=== PATIENT | female | born 1995 | race American Indian/Alaskan Native ===

== ENCOUNTER 2021-04-07 06:59 | Emergency (ER) | payer MEDICAID ==
--- NOTE | 2021-04-07 07:31 | Emergency Department Report ---
ED HPI - General Chief complaint: Vaginal Bleeding Stated complaint: VAGINAL BLEEDING Time Seen by Provider: 04/07/21 07:12 Source: patient Mode of arrival: Ambulatory Limitations: No Limitations - History of Present Illness Initial comments: The patient was evaluated in the emergency department for symptoms described in the history of present illness. He/she was evaluated in the context of the global COVID-19 pandemic, which necessitated consideration that the patient might be at risk for infection with the virus that causes COVID-19. In stitutional protocols and algorithms that pertain to the evaluation of patients at risk for COVID-19 are in a state of rapid change based on information released by regulatory bodies including the CDC and federal and state organizations. These policies and algorithms were followed during the patient's care in the emergency department. Please note that these policies, procedures and recommendations changed on a rapid basis. 25-year-old -[place] female presents to the emergency room stating she is approximately 6 weeks was vaginal spotting that started 3 days ago. She states that she has had a light intermittent cramping. Her last menstrual period was February 22. She is 1 para 0. She has her first appointment with [facility] gynecology in [place] on Saturday. She denies any past medical history she has not started her vitamins and has no known drug allergies. MD Complaint: vaginal bleeding Onset/Timin -: days(s) Severity scale (0 -10): 0 Quality: cramping Consistency: intermittent Improves with: none Worsens with: none Associated symptoms: vaginal bleeding Vaginal bleeding: light :: Yes Number of weeks : 6 OB History - Current : no complications Last menstrual period: 02/22/21 Pre-laura care: none - Related Data : 1 Home Medications Medication Instructions Recorded Confirmed Last Taken DOXYCYCLINE Hyclate [Vibramycin] 100 mg PO BID 03/02/13 03/02/13 Unknown metroNIDAZOLE [Flagyl] 500 mg PO 03/02/13 03/02/13 Unknown Previous Rx's Medication Instructions Recorded Last Taken Type Vit-Fe Fumar-FA [ 1 tab PO QDAY #90 tablet 04/07/21 Unknown Rx Vitamin] Allergies Allergy/AdvReac Type Severity Reaction Status Date / Time No Known Allergies Allergy Unverified 03/02/13 17:04 ED Review of Systems ROS: Stated complaint: VAGINAL BLEEDING Other details as noted in HPI Comment: All other systems reviewed and negative ED Past Medical Hx - Past Medical History Previous Medical History?: No - Surgical History Past Surgical History?: No - Social History Smoking Status: Never Smoker Substance Use Type: None - Medications Home Medications: Home Medications Medication Instructions Recorded Confirmed Last Taken Type DOXYCYCLINE Hyclate [Vibramycin] 100 mg PO BID 03/02/13 03/02/13 Unknown History metroNIDAZOLE [Flagyl] 500 mg PO 03/02/13 03/02/13 Unknown History Vit-Fe Fumar-FA [ 1 tab PO QDAY #90 tablet 04/07/21 Unknown Rx Vitamin] ED Physical Exam - General Limitations: No Limitations General appearance: alert, in no apparent distress - Head Head exam: Present: atraumatic, normocephalic - Eye Eye exam: Present: normal appearance - ENT ENT exam: Present: mucous membranes moist - Neck Neck exam: Present: normal inspection - Respiratory Respiratory exam: Present: normal lung sounds bilaterally. Absent: respiratory distress - Cardiovascular Cardiovascular Exam: Present: regular rate, normal rhythm. Absent: systolic murmur, diastolic murmur, rubs, gallop - GI/Abdominal GI/Abdominal exam: Present: soft, normal bowel sounds - Extremities Exam Extremities exam: Present: normal inspection - Back Exam Back exam: Present: normal inspection - Neurological Exam Neurological exam: Present: alert, oriented X3 - Psychiatric Psychiatric exam: Present: normal affect, normal mood - Skin Skin exam: Present: warm, dry, intact, normal color. Absent: rash ED Course Vital Signs 04/07/21 07:10 Temperature 98.7 F Pulse Rate 82 Respiratory 18 Rate Blood Pressure 117/93 O2 Sat by Pulse 100 Oximetry ED Medical Decision Making - Lab Data Result diagrams: 04/07/21 07:46 Lab Results 04/07/21 04/07/21 04/07/21 Range/Units 07:46 07:46 07:49 WBC 5.8 (4.5-11.0) K/mm3 RBC 4.26 (3.65-5.03) M/mm3 Hgb 12.5 (10.1-14.3) gm/dl Hct 39.2 (30.3-42.9) % MCV 92 (79-97) fl MCH 29 (28-32) pg MCHC 32 (30-34) % RDW 13.5 (13.2-15.2) % Plt Count 256 (140-440) K/mm3 Lymph % (Auto) 26.6 (13.4-35.0) % [place] % (Auto) 6.7 (0.0-7.3) % Eos % (Auto) 1.4 (0.0-4.3) % Baso % (Auto) 0.6 (0.0-1.8) % Lymph # (Auto) 1.5 (1.2-5.4) K/mm3 [place] # (Auto) 0.4 (0.0-0.8) K/mm3 Eos # (Auto) 0.1 (0.0-0.4) K/mm3 Baso # (Auto) 0.0 (0.0-0.1) K/mm3 Seg Neutrophils % 64.7 (40.0-70.0) % Seg Neutrophils # 3.8 (1.8-7.7) K/mm3 HCG, Quant 418.9 H (0-4) mIU/mL Urine Color (Yellow) Urine Turbidity (Clear) Urine pH (5.0-7.0) Ur Specific [place] (1.003-1.030) Urine Protein (Negative) mg/dL Urine Glucose (UA) (Negative) mg/dL Urine Ketones (Negative) mg/dL Urine Blood (Negative) Urine Nitrite (Negative) Urine Bilirubin (Negative) Urine Urobilinogen (<2.0) mg/dL Ur Leukocyte Esterase (Negative) Urine WBC (Auto) (0.0-6.0) /HPF Urine RBC (Auto) (0.0-6.0) /HPF U Epithel Cells (Auto) (0-13.0) /HPF Blood Type B POSITIVE 04/07/21 Range/Units Unknown WBC (4.5-11.0) K/mm3 RBC (3.65-5.03) M/mm3 Hgb (10.1-14.3) gm/dl Hct (30.3-42.9) % MCV (79-97) fl MCH (28-32) pg MCHC (30-34) % RDW (13.2-15.2) % Plt Count (140-440) K/mm3 Lymph % (Auto) (13.4-35.0) % [place] % (Auto) (0.0-7.3) % Eos % (Auto) (0.0-4.3) % Baso % (Auto) (0.0-1.8) % Lymph # (Auto) (1.2-5.4) K/mm3 [place] # (Auto) (0.0-0.8) K/mm3 Eos # (Auto) (0.0-0.4) K/mm3 Baso # (Auto) (0.0-0.1) K/mm3 Seg Neutrophils % (40.0-70.0) % Seg Neutrophils # (1.8-7.7) K/mm3 HCG, Quant (0-4) mIU/mL Urine Color Straw (Yellow) Urine Turbidity Clear (Clear) Urine pH 7.0 (5.0-7.0) Ur Specific [place] 1.009 (1.003-1.030) Urine Protein <15 mg/dl (Negative) mg/dL Urine Glucose (UA) Neg (Negative) mg/dL Urine Ketones Neg (Negative) mg/dL Urine Blood Lg (Negative) Urine Nitrite Neg (Negative) Urine Bilirubin Neg (Negative) Urine Urobilinogen < 2.0 (<2.0) mg/dL Ur Leukocyte Esterase Neg (Negative) Urine WBC (Auto) 1.0 (0.0-6.0) /HPF Urine RBC (Auto) 1.0 (0.0-6.0) /HPF U Epithel Cells (Auto) 1.0 (0-13.0) /HPF Blood Type - Radiology Data Radiology results: [place] [address] Ultrasound Report Signed Patient: AMILCAR GALLARDO MR #: [id number] : 1995 Acct:[id number] Age/Sex: 25 / F ADM Date: 04/07/21 Loc: ED Attending Dr: Ordering Physician: LORRI BRIONES Date of Service: 04/07/21 Procedure(s): US OB <= 14 weeks fetus Accession Number(s): [id number] cc: LORRI BRIONES ULTRASOUND OBSTETRIC INDICATION / CLINICAL INFORMATION: vaginal bleeding. TECHNIQUE: Transabdominal. COMPARISON: None available. FINDINGS: GESTATIONAL SAC: Well-defined oval shape and intrauterine in location. YOLK SAC: No significant abnormality. EMBRYO/FETUS: Nonvisualized ADNEXA: No significant abnormality. FREE FLUID: None. ADDITIONAL FINDINGS: None. IMPRESSION: 1. Findings suggestive of very early intrauterine gestation with estimated sonographic age of 5, 5 weeks, days determined by gestational sac size. No pole is identified. Recommend continued clinical follow-up and sonographic surveillance clinically indicated. Signer Name: Phillip Huertas MD Signed: 04/07/2021 9:20 AM Workstation Name: [id number] Transcribed By: SB Dictated By: PHILLIP HUERTAS MD Electronically Authenticated By: PHILLIP HUERTAS MD Signed Date/Time: 04/07/21919 DD/ 7 TD/TT: Print Cancel - Medical Decision Making 25-year-old -[place] female presents to the emergency room stating she is approximately 6 weeks was vaginal spotting that started 3 days ago. She states that she has had a light intermittent cramping. Her last menstrual period was February 22. She is 1 para 0. She has her first appointment with [facility] gynecology in [place] on Saturday. She denies any past medical history she has not started her vitamins and has no known drug allerg ies. Vaginal bleeding protocol initiated. hCG is 418. No signs of anemia. Urinalysis is negative for any infection. Ultrasound less than 14 weeks Findings suggestive of very early intrauterine g estation with estimated sonographic age of 5, 5 weeks, days determined by gestational sac size. No pole is identified. Recommend continued clinical follow-up and sonographic surveillance clinically indicated. Discussed with patient she needs to be on pelvic rest no intercourse. She needs a repeat hCG in 72 hours she needs to keep her appointment with her HISTOLOGICAL ILLUSTRATOR doctors next week. Most likely need a repeat ultrasound done. Recommend vitamins and to increase her fluids. Discussed when to return back to the emergency room if worsening bleeding with pain. Critical care attestation.: If time is entered above; I have spent that time in minutes in the direct care of this critically ill patient, excluding procedure time. ED Disposition Clinical Impression: Threatened miscarriage in early Disposition: HOME / SELF CARE / HOMELESS Is pt being admited?: No Does the pt Need Aspirin: No Condition: Stable Instructions: Vaginal Bleeding During , First Trimester, Threatened Miscarriage, [id number] Additional Instructions: Ultrasound shows that you are a very early in your . Your quant level is 418. You will need to repeat blood work in 72 hours and to follow-up with your HISTOLOGICAL ILLUSTRATOR to have a repeat ultrasound. Tylenol is the only thing you can take for pain. I highly recommend you start your vitamins. Be sure to increase your fluid intake advance your diet as tolerated. Please do pelvic rest no intercourse until you are seen by your HISTOLOGICAL ILLUSTRATOR. Prescriptions: Vit-Fe Fumar-FA [ Vitamin] 1 tab PO QDAY #90 tablet Referrals: PRIMARY CARE, [Primary Care Provider] - 3-5 Days Your, HISTOLOGICAL ILLUSTRATOR [Other] - 3-5 Days Time of Disposition: 10:18
[2021-04-07 08:07] LABS: Basophils % (Auto) 0.6 % (0.0-1.8); Eosinophils # (Auto) 0.1 K/mm3 (0.0-0.4); Eosinophils % (Auto) 1.4 % (0.0-4.3); Hematocrit 39.2 % (30.3-42.9); Hemoglobin 12.5 gm/dl (10.1-14.3); Lymphocytes # (Auto) 1.5 K/mm3 (1.2-5.4); Lymphocytes % (Auto) 26.6 % (13.4-35.0); Mean Corpuscular HGB Conc 32 % (30-34); Mean Corpuscular Volume 92 fl (79-97); Monocytes # (Auto) 0.4 K/mm3 (0.0-0.8); Monocytes % (Auto) 6.7 % (0.0-7.3); Platelet Count 256 K/mm3 (140-440); Red Blood Count 4.26 M/mm3 (3.65-5.03); Red Cell Distribution Width 13.5 % (13.2-15.2)
[2021-04-07 08:29] LABS: Bilirubin,Urine NEG (Negative); Blood,Urine LG (Negative); Color,Urine Straw (Yellow); Protein,Urine <15 mg/dL mg/dL (Negative); Urobilinogen,Urine < 2.0 mg/dL (<2.0)
--- NOTE | 2021-04-07 09:24 | Ultrasound Report ---
ULTRASOUND OBSTETRIC INDICATION / CLINICAL INFORMATION: vaginal bleeding. TECHNIQUE: Transabdominal. COMPARISON: None available. FINDINGS: GESTATIONAL SAC: Well-defined oval shape and intrauterine in location. YOLK SAC: No significant abnormality. EMBRYO/FETUS: Nonvisualized ADNEXA: No significant abnormality. FREE FLUID: None. ADDITIONAL FINDINGS: None. IMPRESSION: 1. Findings suggestive of very early intrauterine gestation with estimated sonographic age of 5, 5 we eks, days determined by gestational sac size. No pole is identified. Recommend continued clini heather follow-up and sonographic surveillance clinically indicated. Signer Name: Phillip Chadwick MD Signed: 04/07/2021 9:20 AM Workstation Name: [id number]
[2021-04-07 10:31] VITALS: BP 117/70
== END 2021-04-07 10:31 | disposition home or self-care (01) ==
LOC: ED 06:59
DX: O20.0 Threatened abortion (principal); Z79.899 Other long term (current) drug therapy; Z3A.01 Less than 8 weeks gestation of pregnancy
CPT/HCPCS: 36415; 76801; 81001; 84702; 85025; 86900; 86901; 99284